=== PATIENT | female | born 1980 | race Asian ===

== ENCOUNTER 2020-12-19 10:50 | Day surgery (SDC) | payer BC ==
[2020-12-11 15:27] LABS: BASOPHILS # (AUTO) 0.1 X10'3 (0-0.2); BASOPHILS % (AUTO) 0.9 % (0-1); EOSINOPHILS # (AUTO) 0.1 X10'3 (0-0.9); EOSINOPHILS % (AUTO) 1.6 % (0-6); LYMPHOCYTES # (AUTO) 1.7 X10'3 (1.1-4.8); LYMPHOCYTES % (AUTO) 24.5 % (21-51); MEAN CORPUSCULAR HEMOGLOBIN 20.5 PG (27.0-31.0); MEAN CORPUSCULAR VOLUME 64.2 FL (78-98); MEAN PLATELET VOLUME 9.4 FL (7.4-10.4); MONOCYTES # (AUTO) 0.5 X10'3 (0-0.9); NEUTROPHILS # (AUTO) 4.5 X10'3 (1.8-7.7); PRE OP HEMATOCRIT 40.9 % (35.0-45.0); PRE OP HEMOGLOBIN 13.1 g/dL (12.0-16.0); PRE OP PLATELET COUNT 243 X10'3 (140-440); RED BLOOD COUNT 6.37 X10'6 (4.20-5.60)
[2020-12-11 15:28] LABS: CLARITY,URINE CLEAR (Clear); COLOR,URINE STRAW (Yellow); GLUCOSE, URINE NEGATIVE (Neg); KETONES,URINE NEGATIVE (Neg); LEUKOCYTE ESTERASE ,URINE NEGATIVE (Neg); NITRITES, URINE NEGATIVE (Neg); OCCULT BLOOD,URINE MODERATE (Neg); PH,URINE 6.5 (4.8-8.0); PROTEIN,URINE NEGATIVE (Neg); UROBILINOGEN,URINE 0.2 E.U/dL (0.2-1.0)
[2020-12-11 15:32] LABS: UA COLLECTION TYPE CLN CATCH MIDSTREAM
[2020-12-11 15:40] LABS: MUCUS STRANDS FEW /LPF (Neg); SQUAMOUS EPITHELIAL CELL,UR MANY /LPF (FEW)
[2020-12-11 15:42] LABS: WBC,URINE 0-4 /HPF (0-4)
[2020-12-11 15:42] LABS: ALBUMIN 4.3 G/DL (3.4-5.0); ALBUMIN/GLOBULIN RATIO 1.2 (1.1-1.5); ALKALINE PHOSPHATASE 52 IU/L (46-116); BLOOD UREA NITROGEN 7 MG/DL (7-18); BUN/CREATININE RATIO 12.5 (6.6-38.0); CALCIUM 8.7 MG/DL (8.5-10.1); CHLORIDE 104 MMOL/L (99-107); CREATININE 0.56 MG/DL (0.40-0.90); PRE OP ALT 15 U/L (30-65); PRE OP ANION GAP 9 (8-16); PRE OP AST 16 U/L (10-37); PRE OP BILIRUB, TOTAL 0.8 MG/DL (0.0-1.0); PRE OP GLUCOSE 84 MG/DL (70-104); PRE OP POTASSIUM 3.6 MMOL/L (3.4-5.1); PRE OP SODIUM 140 MMOL/L (135-145); TOTAL CARBON DIOXIDE 27.5 MMOL/L (24-32); TOTAL PROTEIN 7.9 G/DL (6.4-8.2); eGFR > 90 ML/MIN
[2020-12-11 15:43] LABS: BACTERIA,URINE FEW /HPF (Neg); RBC,URINE 0-2 /HPF (0-2)
[2020-12-11 15:51] LABS: HCG SERUM QL NEGATIVE
[2020-12-11 15:57] LABS: PLATELET ESTIMATE NORMAL
[2020-12-11 15:58] LABS: ANISOCYTOSIS 2+; MICROCYTOSIS 2+
[2020-12-11 15:59] LABS: BURR CELLS FEW; ELLIPTOCYTES 1+; TEAR DROP CELLS FEW
[~2020-12-19] VITALS: Ht 154.9 cm; Wt 52.0 kg
[2020-12-19] VITALS (17 sets, daily range): BP systolic 97–143; BP diastolic 43–92
[~2020-12-19 10:50] MED LIST: ASCO-134 PO; CHOL20004 PO; FERR-116 PO; FLAX100032 PO; IBUP-1984 PO; MAGN400C PO; [UNRECOGNIZED DRUG - OTHER]; [UNRECOGNIZED DRUG - REMARK] PO; ceFOXitin 2GM-NS 100mL ADDvant 100 ML IV ONE; famotidine 20mg tablet PO ONE; ringers solution, lacted 1,000 ML IV SCH
[2020-12-19] MEDS ORDERED: ringers solution, lacted 1,000 ML IV SCH ×2 (13:45→17:10)
[2020-12-19] MEDS ORDERED: proCHLORperazine 10 MG/2 ml inj IV PRN (13:45)
[2020-12-19] MEDS ORDERED: ondansetron/PF 4mg/2ml inj IV PRN ×2 (13:45→17:10)
[2020-12-19] MEDS ORDERED: morphine 4 MG/ML inj SYRINge IV PRN (13:45)
[2020-12-19] MEDS ORDERED: meperidine/PF 25mg/ml syringe IV PRN ×3 (13:45)
[2020-12-19] MEDS ORDERED: morphine 2 MG/ML inj. syringe IV PRN (13:45)
[2020-12-19] MEDS ORDERED: BUPIVAcaine 0.5% W/EPI /PF 10ml vial ONE (13:47)
[2020-12-19] MEDS ORDERED: BUPIVAcaine/PF 2.5mg/ml (0.25%) 10ml vial ONE (13:47)
[2020-12-19] MEDS ORDERED: vasoPRESSIN 20 units/ml inj. ONE (13:48)
[2020-12-19] MEDS ORDERED: clindamycin phosphate 40gm vag cream ONE (13:48)
[2020-12-19] MEDS ORDERED: sevoflurane 250ml liquid IH ONE (14:26)
[2020-12-19] MEDS ORDERED: midazolam 1 mg/ML 2ml injection ONE (14:28)
[2020-12-19] MEDS ORDERED: fentaNYL /PF 50mcg/ml 5ml ampule ONE (14:29)
[2020-12-19] MEDS ORDERED: bupivacaine 0.25%/epinephrine 1:200,000 inj (contains preserv. MDV) IJ ONE (14:55)
[2020-12-19] MEDS ORDERED: rocuronium 10mg/ml inj IV ONE (16:21)
[2020-12-19] MEDS ORDERED: propofol inj 20 ML IV ONE (16:21)
[2020-12-19] MEDS ORDERED: dexamethasone sod phosphate 4mg/ml inj. ONE (16:22)
[2020-12-19] MEDS ORDERED: glycopyrrolate 0.2mg/ml inj ONE (16:22)
[2020-12-19] MEDS ORDERED: neostigmine methylsulfate 1 MG/ML 10ml vial ONE (16:22)
[2020-12-19] MEDS ORDERED: ondansetron/PF 4mg/2ml inj ONE (16:22)
[2020-12-19] MEDS ORDERED: acetaminophen 1,000mg/100ml IV 100 ML IV ONE (16:25)
[2020-12-19] MEDS ORDERED: LORazepam 2 mg/ml vial IV PRN (17:10)
[2020-12-19] MEDS ORDERED: diphenhydrAMINE 50 mg/ml inj IV PRN (17:10)
[2020-12-19] MEDS ORDERED: HYDROcodone/acetaminophen 10/325mg tab PO PRN ×2 (17:10)
[2020-12-19] MEDS ORDERED: metoclopramide 5 mg/ml inj IV PRN (17:10)
[2020-12-19] MEDS ORDERED: normal saline 500ml IV soln 500 ML IV PRN (17:10)
[2020-12-19] MEDS ORDERED: magnesium hydroxide 30ml (MOM) UD suspension PO PRN (17:10)
[2020-12-19] MEDS ORDERED: temazepam 15mg capsule PO PRN (17:10)
--- NOTE | 2020-12-19 17:23 | NUR ---
Received from OR via SURGICAL BED , accompanied by Anesthesiologist FILIPPO and report given by Anesthesiolgist. PATIENT WITH VSS. 20G PIV IN RIGHT UE RUNNING LR AT 100. 2 LAP SITES TO ABDOMEN THAT ARE CDI AND A SMOOTH PAD IN PLACE- NO DRAINAGE PRESENT. Addendum: 12/19/20 at 1730 by Dandy Melissa RN, RN Amended: Links added.
--- NOTE | 2020-12-19 18:33 | NUR ---
PATIENT HAS MET ALL CRITERIA FOR DC TO THE SURGICAL FLOOR. VSS. DENIES PAIN. PATIENTS RN SHANNEN PRESENT TO ACCEPT PATIENT AT BEDSIDE. PATIENT WITH 2 BAGS OF BELONGINGS SENT WITH HER TO 349B. PATIENT WITH DRESSINGS CDI. INSTRUCTIONS FOR WHEN TO REPLACE ZUNIGA CATHETER IF HAS NOT VOIDED BY MIDNIGHT. PATIENT BED LOW AND LOCKED. 2 RAILS UP AND PATIENT STATED "THANK YOU" PRIOR TO ME LEAVING ROOM. CARE TURNED OVER TO SHANNEN SANTIAGO. Addendum: 12/19/20 at 1850 by Dandy Melissa RN, RN Amended: Links added.
[2020-12-19] MEDS: ketorolac trometh. 30mg/ml inj. IV PRN (19:09)
--- NOTE | 2020-12-19 19:19 | NUR ---
138 BLOOD GLUCOSE AT 1903 IN RR Addendum: 12/19/20 at 1919 by Dandy Melissa RN RN Amended: Links added. Addendum: 12/19/20 at 1920 by Dandy Melissa RN RN ERROR IN CHARTING. WRONG PATIENT ENTRY. PLEASE DISCARD BG OF 138
--- NOTE | 2020-12-19 21:16 | NUR ---
Patient in room [facility]. I have received report from IVAN SANTIAGO and had the opportunity to ask questions and assume patient care. Patient resting with no sign of discomfort. V/S within normal limits
[2020-12-19] MEDS: docusate sod 100mg capsule PO SCH (21:47)
--- NOTE | 2020-12-19 22:41 | NUR ---
PATIENT DISCONTINUED IN RECOVERY Addendum: 12/19/20 at 2242 by Leila Barker RN Amended: Links added.
[2020-12-20] VITALS: BP 124/75
[2020-12-20] MEDS: ketorolac trometh. 30mg/ml inj. IV PRN ×2 (01:35→12:58)
--- NOTE | 2020-12-20 01:44 | NUR ---
FC DISCONTINUED IS RECOVERY.12/19/20 Addendum: 12/20/20 at 0145 by Leila Barker RN Amended: Links added.
[2020-12-20 04:00] VITALS: BP 112/66
--- NOTE | 2020-12-20 05:28 | NUR ---
FC WAS DISCONTINUED IN RECOVERY. PATIENT VOIDING WITHOUT DIFFICULTY. Addendum: 12/20/20 at 0529 by Leila Barker RN Amended: Links added.
--- NOTE | 2020-12-20 06:36 | NUR ---
Problems reprioritized. Patient report given, questions answered & plan of care reviewed with THIERRY RN.
--- NOTE | 2020-12-20 07:02 | NUR ---
Patient in room [facility]. I have received report from Leila SANTIAGO and had the opportunity to ask questions and assume patient care.
[2020-12-20 07:28] VITALS: BP 100/55
[2020-12-20 07:55] LABS: BASOPHILS % (AUTO) 0.2 % (0-1); EOSINOPHILS % (AUTO) 0 % (0-6); HEMATOCRIT 35.8 % (35.0-45.0); HEMOGLOBIN 11.4 g/dl (12.0-16.0); LYMPHOCYTES % (AUTO) 8.2 % (21-51); MEAN CORPUSCULAR HEMOGLOBIN 20.5 PG (27.0-31.0); MEAN CORPUSCULAR HGB CONC 31.7 g/dL (33.0-36.5); MEAN CORPUSCULAR VOLUME 64.7 FL (78-98); MEAN PLATELET VOLUME 9.9 FL (7.4-10.4); MONOCYTES % (AUTO) 8.5 % (2-12); NEUTROPHILS # (AUTO) 10.2 X10'3 (1.8-7.7); NEUTROPHILS % (AUTO) 83.1 % (42-75); PLATELET COUNT 207 X10'3 (140-440); RED BLOOD COUNT 5.54 X10'6 (4.20-5.60); RED CELL DISTRIBUTION WIDTH 15.5 % (11.5-14.5); WHITE BLOOD COUNT 12.2 X10'3 (4.5-11.0)
[2020-12-20 08:00] VITALS: BP 101/61
[2020-12-20] MEDS ORDERED: enoxaparin 40mg/0.4ml syringe SQ SCH (08:00)
[2020-12-20 08:10] LABS: ALBUMIN 3.6 G/DL (3.4-5.0); ANION GAP 12 (8-16); BLOOD UREA NITROGEN 7 MG/DL (7-18); BUN/CREATININE RATIO 12.7 (6.6-38.0); CALCIUM 7.9 MG/DL (8.5-10.1); CHLORIDE 104 MMOL/L (99-107); CREATININE 0.55 MG/DL (0.40-0.90); GLUCOSE 96 MG/DL (70-104); POTASSIUM 3.7 MMOL/L (3.5-5.1); SODIUM 142 MMOL/L (135-145); TOTAL CARBON DIOXIDE 26.2 MMOL/L (24-32); eGFR > 90 ML/MIN
[2020-12-20 08:33] LABS: ANISOCYTOSIS 1+; ELLIPTOCYTES 2+; HYPOCHROMASIA 1+; MICROCYTOSIS 2+; PLATELET ESTIMATE NORMAL
[2020-12-20] MEDS: docusate sod 100mg capsule PO SCH (08:52)
--- NOTE | 2020-12-20 14:46 | NUR ---
Patient disdcharged into the care of her family. Patient had medications from MD office called to her pharmacy. Patient educated on her procedure and ss of infection. patient left hospital walking to lobby and taken home in private vehicle. patient iv taken out at time of discharge canula whole and intact upon inspection.
== END 2020-12-20 14:46 | disposition home or self-care (01) ==
LOC: PAS 10:50 → SUR 3N 17:00 → UNDOADMOB 17:00 → SUR 3N 17:09 → PAS 12-20 14:46
PROVIDERS: ATTEND Obstetrics & Gynecology Obstetrics
DX: N93.8 Other specified abnormal uterine and vaginal bleeding (principal); N94.6 Dysmenorrhea, unspecified; N83.291 Other ovarian cyst, right side; N85.8 Other specified noninflammatory disorders of uterus; N80.2 Endometriosis of fallopian tube; N80.0 Endometriosis of uterus; D64.9 Anemia, unspecified; G43.909 Migraine, unspecified, not intractable, without status migrainosus; Z98.890 Other specified postprocedural states; Z79.899 Other long term (current) drug therapy; Z91.040 Latex allergy status; Z91.013 Allergy to seafood; Z72.89 Other problems related to lifestyle
CPT/HCPCS: 36415; 58552; 71046; 80048; 80053; 81001; 82948; 84703; 85025; 86885; 86900; 86901; 93005; J0131; J0694; J1100; J1885; J2250; J2405; J2704; J2710; J3010; J3490; J7120; 85008; A4314; A4618; A7000; G0378; J1650